=== PATIENT | male | born 1955 | race Caucasian/White ===

== ENCOUNTER 2021-04-23 15:06 | Observation (INO) | payer OTHER, SELFPAY ==
--- NOTE | 2021-04-17 09:47 | EKG12_ITS ---
Test Reason : PREOP Blood Pressure : / mmHG Vent. Rate : 054 BPM Atrial Rate : 066 BPM P-R Int : 000 ms QRS Dur : 112 ms QT Int : 400 ms P-R-T Axes : 054 051 052 degrees QTc Int : 379 ms Sinus rhythm with 2nd degree A-V block (Mobitz I) Poor R wave progression Abnormal ECG Confirmed by MATHIEU MEADOWS, MARLENA ([id number]), sound editor CHIKI MAJOR ([id number]) on 04/21/2021 10:24:06 AM Referred By: Chino Lund Confirmed By:MARLENA MURDOCK MD
[2021-04-17 11:33] LABS: Hematocrit 44.4 % (40-54); Hemoglobin 14.6 g/dL (13.0-16.5); Mean Corp Hgb Conc 32.9 g/dL (32-36); Mean Corpuscular Hgb 28.2 pg (27.0-32.0); Mean Corpuscular Volume 85.9 fL (80-94); Mean Platelet Vol. 11.8 fl (6.2-12.0); Platelet Count 280 K/mm3 (150-450); RBC Distribution Width CV 13.9 % (11.6-14.6); RBC Distribution Width SD 43.8 fl (35.1-43.9); Red Blood Count 5.17 M/mm3 (4.6-6.2); White Blood Count 9.1 K/mm3 (4.4-11.0)
[2021-04-17 11:49] LABS: Hemoglobin A1c 6.9 % (3.8-5.6)
[2021-04-17 11:59] LABS: Anion Gap 7 (5-15); BUN 19 mg/dL (7-18); BUN/Creat Ratio 20.9 RATIO (10-20); Calcium,Total 8.9 mg/dL (8.5-10.1); Chloride 103 mmol/L (98-107); Creatinine, Serum 0.91 mg/dL (0.70-1.30); EST Glomerular Filtration Rate 89 mL/min (>60); Est Glom Filt Rate - Afr Amer 108 mL/min (>60); Glucose 119 mg/dL (74-106); Potassium 4.4 mmol/L (3.5-5.1); Sodium Level 137 mmol/L (136-145)
[2021-04-22] VITALS (11 sets, daily range): BP systolic 114–129; BP diastolic 63–89; PULSE 42–64; RESP 12–18; TEMP 35.9–36.6; O2SAT 96–100; BMI 34.6
--- NOTE | 2021-04-22 | PROS_PTH ---
PATIENT: RENE PEPPER LOC: MS3 U#:[id number] AGE/SX: 65/M ROOM: [facility] RE04/23/[address]: Dr. Chino Lund MD : [id number] BED: 1 DIS: 04/23/2021 SPEC #: [id number] RECD: 04/22/21 15:18 STATUS: ROCIO GALEAS #: [id number] ANEESH: 04/22/21 00:[address]: Chino Lund DEPT: SURGICAL PATHOLOGY RECD BY: Gordon Dodson ENTERED: 04/23/21 08:16 SP TYPE: TURP OTHR DR: Dr. Ankur Galinod MD Tissues: Prostate, NOS Procedures: Surgery Specimen Level IV HEADER OPERATION: Cysto, TUR prostate, Olympus PRE-OP DIAGNOSIS: BPH with obstruction/lower urinary tract symptoms; urinary retention TISSUE SUBMITTED: Prostate tissue MICROSCOPIC DIAGNOSIS Prostate, transurethral resection: Benign nodular hyperplasia, glandular and stromal types. Chronic inflammation with focal acute inflammation. Urothelium with mild chronic inflammation. AM:tess 04/24/2021 MICROSCOPIC DESCRIPTION Slides are reviewed. GROSS DESCRIPTION Received is one container labeled with the patient's name and designated prostate tissue. The specimen consists of multiple irregular fragments of pink-henning, rubbery, soft tissue that in aggregate weigh 22.5 gm and measure in aggregate 6 x 6 x 2 cm. Consultant Education portions are submitted in ten cassettes. / AM:tess 04/23/21 TC:3 CPT: 06720
[2021-04-22 09:35] LABS: Bedside Glucose 133 mg/dL (70-110)
[2021-04-22] MEDS: Lactated Ringers 1,000 ML 100 ML IV ×2 (09:37→12:30)
[2021-04-22] MEDS: Cefazolin 2 GM in 0.9% Normal Saline 100 ML IV (11:12)
--- NOTE | 2021-04-22 11:13 | PCM.DC ---
Discharge Instructions Diet Discharge Diet: No restrictions Activity Discharge Activity: Return to Normal Activity and May Not Drive (while taking narcotic pain medications.) Dressing / Incision Call your doctor if you observe: Fever of 101 or Higher Follow Up Care Please Follow Up With: Chino Lund MD When: Call [phone] for an appointment Test Results: Test results from this visit will be discussed in further detail at your follow-up appointment, if applicable. Discharge Plan Admission Primary Reason for Your Visit: TURP Attending Provider: Chino Lund Primary Care Provider: Ankur Galindo Discharge Orders/Prescriptions Prescriptions: New ciprofloxacin HCl [Cipro] 500 mg tablet 500 mg PO BID Qty: 14 RF: 0 Continued multivitamin Tablet 1 tab PO DAILY RF: 0 metformin 500 mg Tablet 500 mg PO BID RF: 0 lisinopril 10 mg tablet 10 mg PO DAILY RF: 0 cranberry 500 mg Capsule 900 mg PO DAILY RF: 0 insulin aspart U-100 [Novolog Flexpen U-100 Insulin] 100 unit/mL (3 mL) Insulin Pen 0 unit SUBCUT TID RF: 0 rosuvastatin [Crestor] 20 mg Tablet 20 mg PO QHS RF: 0 metoprolol tartrate 25 mg Tablet 25 mg PO QHS RF: 0 Lantus Solostar U-100 Insulin 100 unit/mL (3 mL) Insulin Pen 70 unit SUBCUT DAILY RF: 0 Held aspirin 325 mg Tablet 325 mg PO DAILY RF: 0 Hold Instructions: Resume on 05/06/21. Discontinued tamsulosin 0.4 mg Capsule 0.4 mg PO BID RF: 0 Referrals / Follow Up: Chino Lund MD [STAFF PHYSICIAN] - Ankur Galindo MD [Primary Care Provider] -
--- NOTE | 2021-04-22 11:15 | HP.PCM_ITS ---
HPI - General HPI Narrative RENE PEPPER, is a 65 M who presents with retention of urine he has a very large obstructive prostate urodynamics does demonstrate some bladder function so I think a TURP would be of benefit organ to do a transurethral resection of the large prostate hopefully after this he will be able to urinate he understands no guarantees of surgery will work this was explained to him quite thoroughly I also explained to him how the surgery will be done risk of bleeding infection risk of scar tissue formation. All his questions were addressed in order to proceed with surgery today [facility] Medical History (Updated 04/22/21 @ 11:[address] Chino Lund MD) Arthritis Back pain Cardiology follow-up encounter CPAP (continuous positive airway pressure) dependence Dietary restriction High cholesterol History of edema History of irregular heartbeat History of renal disease History of stress test Hypertension Insulin dependent diabetes mellitus Loss of hearing Non-smoker Prostate disease Shoulder pain with history of repair of rotator cuff Shoulder pain with history of repair of rotator cuff Wears dentures Wears glasses Home Medications Lantus Solostar U-100 Insulin 70 unit SUBCUT DAILY 04/15/21 [History Last Taken 04/21/21] aspirin 325 mg PO DAILY 04/15/21 [History Last Taken 04/15/21] cranberry 900 mg PO DAILY 04/15/21 [History Last Taken 04/21/21] insulin aspart U-100 [Novolog Flexpen U-100 Insulin] 0 unit SUBCUT TID 04/15/21 [History Last Taken 04/21/21] lisinopril 10 mg PO DAILY 04/15/21 [History Last Taken 04/22/21] metformin 500 mg PO BID 04/15/21 [History Last Taken 04/21/21] metoprolol tartrate 25 mg PO QHS 04/15/21 [History Last Taken 04/21/21] multivitamin 1 tab PO DAILY 04/15/21 [History Last Taken 04/21/21] rosuvastatin [Crestor] 20 mg PO QHS 04/15/21 [History Last Taken Unknown] ciprofloxacin HCl [Cipro] 500 mg PO BID #14 tab 04/22/21 [Rx Last Taken Unknown] Allergy/AdvReac Type Severity Reaction Status Date / Time No Known Allergies Allergy Verified 04/22/21 09:19 Surgical History (Updated 04/15/21 @ 14:06 by Elizabeth Spencer) History of heart surgery History of quadruple bypass Hx of colonoscopy Hx of lithotripsy Hx of total knee arthroplasty Social History Smoking Status: Never smoker Vital Signs Vital Signs Vital Signs: 04/22/21 09:21 Temperature 96.7 F L Temperature Source Temporal Pulse Rate 53 L Respiratory Rate 18 Respiratory Pattern Normal Blood Pressure 119/69 Blood Pressure Mean 85 Blood Pressure Source Monitor Blood Pressure Position Semi-Fowlers Blood Pressure Location Left Arm Pulse Ox 97 Oxygen Delivery Method Room Air Weight Weight: 112.6 kg Body Mass Index (BMI) 34.6 Physical Exam Const alert and oriented x3 General Appearance: cooperative HEENT normocephalic, head/scalp atraumatic, EAC's normal and TM's normal bilaterally Eyes PERRL and EOMs intact bilaterally Pupil: sluggish Neck no lymphadenopathy, supple and no JVD General: trachea midline Lymph Lymphatic: no lymphadenopathy noted, lymphedema and lymphadenopathy Resp normal respiratory effort, normal air movement and clear to auscultation bilaterally Cardio regular rate, regular rhythm and peripheral pulses 2+ throughout GI soft to palpation, non-tender and non-distended Extremity normal capillary refill and no clubbing, cyanosis or edema General Extremity: no tenderness to palpation of joints or extremities Skin no rashes or lesions noted General Skin Exam: turgor normal Lesions: no lesions Rashes: no rashes Neuro CN's II-XII intact bilaterally Speech: speech normal Motor Exam: strength 5/5 throughout; Negative for general weakness Psych thought process normal, cooperative and affect normal Appearance: appropriate Results Lab / Micro Data Result Diagrams: 04/17/21 10:01 04/17/21 10:01 Labs: Laboratory Results - last 24 hr 04/22/21 09:16 POC Glucose 133 H Assessment & Plan Assessment/Plan (1) BPH with obstruction/lower urinary tract symptoms: (2) Urinary retention: PLAN: Plan to proceed with transurethral section of the prostate for urinary retention does have a very large prostate with obstruction on urodynamic study he appeared to have some bladder function so I suspect that hopefully with surgery he will be able to regain normal voiding. Of course the patient understands I cannot guarantee this for him.
--- NOTE | 2021-04-22 13:15 | PCM.OPRPT ---
Report of Operation Date of Procedure: 04/22/21 Pre-Operative Diagnosis: BPH with obstruction retention of urine Post-Operative Diagnosis: Same Surgery/Procedure Performed:: Transurethral section of prostate Description of Surgical Findings:: In the preoperative setting I discussed with the patient how the surgery would be done with expect afterwards. We discussed how a prostate resection is done and we discussed the risk of the surgery including, bleeding, infection, retrograde ejaculation, changes with ejaculation or intercourse,. We discussed the possibility that the resection of the prostate may not alleviate his urinary symptoms. We discussed the small risk of developing scar tissue along the urethral channel and strictures. We also discussed the chance of the prostate could grow back and he may need further surgery or treatment in the future for prostate problems. Patient was taken back to the operating room, timeout procedure was performed, he was identified and marked and placed on the operating room table. He underwent general anesthesia. He was placed in dorsolithotomy position. Penis and testicles were prepped and draped in usual sterile fashion. Went into the bladder using the visual obturator with a resectoscope. Once inside the bladder identified the right and left ureteral orifice. I then identified the prostate and the anatomy of the prostate. I marked out the area of the sphincter and the verumontanum was identified. I then proceeded with the prostate resection first resected the median lobe. And then resected the right lobe of the prostate. Then to resect the left lobe of the prostate. I then resected the apical tissue of the prostate. Made sure that there was no injury to the sphincter or the verumontanum was still intact. At the end of the resection all the chips were Ellik out of the bladder. I then identified the left and right ureteral orifice and these were confirmed to be in good position and effluxing and not injured. The resectoscope was removed, a 22 Maldivian catheter was placed into the bladder on continuous irrigation. And the urine was fairly light pink color and draining normally. He was taken back to the PACU in good condition. Surgeon: Kevon Type of Anesthesia: General Drains: 22 Maldivian three-way catheter Admit VTE Documentation VTE Present on Admission: No VTE Mechan Device Prophylaxis: SCD's
[2021-04-22] MEDS: 0.9% Normal Saline 1,000 ML 125 ML IV (16:01)
[2021-04-22] MEDS: metFORMIN HCl 500 MG Tablet PO (16:06)
[2021-04-22] MEDS: Ketorolac 15 MG/ML Vial IV (19:06)
[2021-04-22] MEDS: Insulin Lispro 100 UNIT/ML INSULN.PEN SC (21:48)
[2021-04-22] MEDS: Ciprofloxacin 400 MG/200 ML BAG 200 MG IV (21:55)
[2021-04-22] MEDS: Atorvastatin Calcium 40 MG Tablet PO (21:58)
[2021-04-22] MEDS: Metoprolol Tartrate 25 MG Tablet PO (22:00)
[2021-04-23] MEDS: 0.9% Normal Saline 1,000 ML 125 ML IV ×2 (00:53→08:25)
[2021-04-23] MEDS: Ketorolac 15 MG/ML Vial IV (01:39)
[2021-04-23] MEDS: 0.9% Saline Lock 10 ML Syringe IV (01:40)
[2021-04-23 03:24] VITALS: BP 106/60; PULSE 50; RESP 16; TEMP 36.6; O2SAT 97
[2021-04-23] MEDS: Insulin Lispro 100 UNIT/ML INSULN.PEN SC ×2 (06:24→12:22)
--- NOTE | 2021-04-23 07:22 | PCM.PN.BLA ---
Progress Note bloody overnight better this am stop CBI call Dr Ludn with report at noon.
[2021-04-23] MEDS: metFORMIN HCl 500 MG Tablet PO ×2 (08:25→17:17)
[2021-04-23] MEDS: Multivitamins,Therapeutic Tablet 1 TABLET PO (08:25)
[2021-04-23 08:59] VITALS: BP 117/55; PULSE 52; RESP 24; TEMP 36.3
[2021-04-23 09:05] VITALS: PULSE 72
[2021-04-23 09:22] VITALS: PULSE 51; RESP 24; O2SAT 97
--- NOTE | 2021-04-23 10:07 | PHA.DC.MC ---
Pharmacy Service has performed discharge medication reconciliation and counseling for this patient. The patient was counseled on the following discharge medications and changes in medications for homegoing were reviewed. 1. CIPROFLOXACIN The Reason for Use, instructions for use, and potential side effects were reviewed for all new medications. The patient's questions regarding all of their medications were answered. The patient was able to verbally demonstrate an understanding of their discharge medications. Home Medications Lantus Solostar U-100 Insulin 70 unit SUBCUT DAILY 04/15/21 aspirin 325 mg PO DAILY 04/15/21 cranberry 900 mg PO DAILY 04/15/21 insulin aspart U-100 [Novolog Flexpen U-100 Insulin] 0 unit SUBCUT TID 04/15/21 lisinopril 10 mg PO DAILY 04/15/21 metformin 500 mg PO BID 04/15/21 metoprolol tartrate 25 mg PO QHS 04/15/21 multivitamin 1 tab PO DAILY 04/15/21 rosuvastatin [Crestor] 20 mg PO QHS 04/15/21 ciprofloxacin HCl [Cipro] 500 mg PO BID #14 tab 04/22/21
[2021-04-23] MEDS: Lisinopril 10 MG Tablet PO (10:37)
[2021-04-23] MEDS: Ciprofloxacin 400 MG/200 ML BAG 200 MG IV (10:46)
[2021-04-23 12:17] VITALS: BP 123/49; PULSE 64; RESP 16; TEMP 36.8; O2SAT 98
--- NOTE | 2021-04-23 16:10 | NURSING ---
VOIDING IN URINAL. BLADDER SCAN DONE. NO RESIDUAL URINE IN BLADDER BUT PATIENT STILL C/O BLOATING & FEEL FULL. DRINKING SUFFICIENT WATER. DR.PROANO GOMEZ.
[2021-04-23 18:03] VITALS: BP 139/71; PULSE 62; RESP 18; TEMP 36.2; O2SAT 98
== END 2021-04-23 18:24 | disposition home or self-care (01) ==
LOC: SDC 15:33 → MS3 15:33
PROVIDERS: Anesthesiology; Admitting Provider Urology; PCP Family Medicine; Referring Provider Urology; Visit Provider Urology
PROC: (CPT 52601; principal; 2021-04-22 10:30)
DX: N40.1 Benign prostatic hyperplasia with lower urinary tract symptoms (principal); N13.8 Other obstructive and reflux uropathy; R33.8 Other retention of urine; E78.00 Pure hypercholesterolemia, unspecified; M19.90 Unspecified osteoarthritis, unspecified site; E11.9 Type 2 diabetes mellitus without complications; I10 Essential (primary) hypertension; Z79.899 Other long term (current) drug therapy; Z79.4 Long term (current) use of insulin; Z79.82 Long term (current) use of aspirin; I44.1 Atrioventricular block, second degree; R94.31 Abnormal electrocardiogram [ECG] [EKG]
CPT/HCPCS: 00914; 52601; 36415; 80048; 82962; 83036; 85027; 88305; 93005; 96361; 96365; 96366; 96375; 96376; 99218; J7030; J7120; A4216; G0378; G0379; J0744; J2405